=== PATIENT | female | born 1970 | race Two or more races ===

== ENCOUNTER 2021-04-22 08:00 | Outpatient (CLI) | payer OTHER | END 2021-04-22 08:30 | disposition home or self-care (01) | LOC: PPH VACUNA 08:00 | PROVIDERS: ATTEND Emergency Medicine Pediatric Emergency Medicine | DX: Z23 Encounter for immunization (principal) ==

== ENCOUNTER 2023-02-04 13:30 | Outpatient (CLI) | payer OTHER | END 2023-02-04 13:40 | disposition home or self-care (01) | LOC: PPH VACUNA 13:30 | PROVIDERS: ATTEND Emergency Medicine Pediatric Emergency Medicine | DX: Z23 Encounter for immunization (principal) | CPT/HCPCS: 90686; G0008 ==